=== PATIENT | male | born 1950 | race Caucasian/White ===

== ENCOUNTER 2018-05-14 22:53 | Emergency (ER) | payer MEDICARE, MEDICAID ==
[~2018-05-14] VITALS: Ht 172.7 cm; Wt 70.5 kg
[2018-05-14 22:54] VITALS: TEMP 97.2
[2018-05-14 23:30] LABS: COLLECTION METHOD CLEAN CATCH
[2018-05-14 23:32] LABS: BASO % 0.6 % (0.0-2.0); EOS % 0.4 % (0-4.0); GRAN % 72.6 % (42.2-75.2); HEMATOCRIT 42.4 % (42.0-52.0); HEMOGLOBIN 14.8 g/dl (13.5-18.0); LYMPH # 1.3 (1.2-3.4); LYMPH % 18.2 % (20.0-51.0); MEAN CELL VOLUME 91 fl (80.0-100.0); MEAN CORPUSCULAR HEMOGLOBIN 32 pg (27.0-31.0); MEAN CORPUSCULAR HGB CONC 35 g/dl (33.0-37.0); MEAN PLATELET VOLUME 8.1 fl (7.4-10.4); MONO # 0.6 (0.1-0.6); MONO % 8.1 % (1.7-9.3); PLATELET COUNT 188 K/mm3 (130-400); RED BLOOD COUNT 4.67 M/mm3 (4.20-5.60); REDCELL DISTRIBUTION WIDTH-CV 12.7 % (11.5-14.5)
[2018-05-14 23:39] LABS: PH 7 (5-8); SQUAMOUS EPITHELIAL None Seen /hpf; URINE APPEARANCE Clear; URINE BACTERIA None Seen /hpf; URINE BILIRUBIN Negative (NEGATIVE); URINE BLOOD Negative (NEGATIVE); URINE COLOR Straw; URINE GLUCOSE Negative (NEGATIVE); URINE KETONE Negative (NEGATIVE); URINE LEUKOCYTE ESTERASE Negative (NEGATIVE); URINE NITRATE Negative (NEGATIVE); URINE PROTEIN(semi-quant) Negative (NEGATIVE); URINE RBC None Seen /hpf; URINE UROBILINOGEN Negative (NEGATIVE)
[2018-05-14 23:41] LABS: ALBUMIN 4.4 gm/dL (3.5-5.0); BILIRUBIN,TOTAL 0.6 mg/dL (0.0-1.0); CALCIUM 9.6 mg/dL (8.4-10.2); CREATININE, serum 0.65 mg/dL (0.66-1.25); TOTAL PROTEIN 7.4 gm/dL (6.4-8.2)
[2018-05-15 01:55] VITALS: BP 155/88; PULSE 76
== END 2018-05-15 01:57 | disposition home or self-care (01) ==
LOC: COL.ER 22:53
PROVIDERS: Emergency Medicine
DX: R10.31 Right lower quadrant pain (principal); G43.909 Migraine, unspecified, not intractable, without status migrainosus
CPT/HCPCS: Q9967

== ENCOUNTER 2020-05-18 07:49 | Day surgery (SDC) | payer MEDICARE, MEDICAID ==
[~2020-05-18] VITALS: Ht 172.7 cm; Wt 68.9 kg
[2020-05-18 08:19] VITALS: BP 154/76; PULSE 89; TEMP 97.8
[2020-05-18] MEDS ORDERED: LOTRISONE CREAM15 GM TP (08:47)
[2020-05-18] MEDS ORDERED: TYLENOL 500MG500 MG PO (08:49)
--- NOTE | 2020-05-18 09:55 | NUR ---
Initial visit; Patient anxious and fears surgical procedure as his mom passed at the same age while undergoing surgery. Outsole Scheduler listened and offered encouragement, comfort and prayer. Patient appeared to be comforted and strengthened by prayer and assurance from Outsole Scheduler.
[2020-05-18] MEDS ORDERED: NORCO 325 MG-51 TAB PO (11:21)
[2020-05-18 11:51] VITALS: TEMP 97.2
[2020-05-18 12:25] VITALS: BP 136/62; PULSE 77
--- NOTE | 2020-05-18 12:25 | NUR ---
Patient returns to room 8 per cart from PACU accompanied by Priscila RN and is awake and alert. Room air sats 100% and temp 97.3. Bandaids x3 across the mid abdomen dry and bandaid to right lower groin area dry. Scrotal support in place. IV fluids infusing and site is free of redness. Siderails up x2 and call light in reach. Allowed to rest.
--- NOTE | 2020-05-18 12:35 | NUR ---
Patient assisted up to the bathroom and gait steady.
--- NOTE | 2020-05-18 12:45 | NUR ---
Patient returns to room after voiding and tolerates activity well. Drinking water and denies nausea.
[2020-05-18 13:00] VITALS: BP 143/76; PULSE 76
--- NOTE | 2020-05-18 13:00 | NUR ---
Room air sats 93%. Sipping on orange juice and eating muffin.
[2020-05-18 13:15] VITALS: BP 153/77; PULSE 80
--- NOTE | 2020-05-18 13:15 | NUR ---
Tolerated muffin and juice. Denies pain or nausea.
[2020-05-18 13:30] VITALS: BP 140/75; PULSE 81
--- NOTE | 2020-05-18 13:30 | NUR ---
Continues to rest without complaints.
--- NOTE | 2020-05-18 13:35 | NUR ---
Up to the bathroom and gait steady. Voids and returns to room. Denies need for pain medications.
--- NOTE | 2020-05-18 13:45 | NUR ---
INT needle discontinued and site is free of redness. Patient dresses self.
--- NOTE | 2020-05-18 14:05 | NUR ---
Dismissal instructions given and voices understanding of these. Provided script for [facility] and instructed on taking Motrin 600mg every 6 hours as needed and to take with food or milk. May start at 1700 today.
--- NOTE | 2020-05-18 14:23 | NUR ---
Patient dismissed to home driven by friends and taken to the front door per wheelchair and assisted into vehicle by this RN with dismissal instructions in hand.
== END 2020-05-18 14:23 | disposition home or self-care (01) ==
LOC: SDCO 07:49
DX: K40.90 Unilateral inguinal hernia, without obstruction or gangrene, not specified as recurrent (principal); K58.9 Irritable bowel syndrome, unspecified; M06.9 Rheumatoid arthritis, unspecified; E78.5 Hyperlipidemia, unspecified; M81.0 Age-related osteoporosis without current pathological fracture; N40.0 Benign prostatic hyperplasia without lower urinary tract symptoms; I10 Essential (primary) hypertension; G43.909 Migraine, unspecified, not intractable, without status migrainosus; Z80.6 Family history of leukemia; Z88.8 Allergy status to other drugs, medicaments and biological substances; Z20.828 Contact with and (suspected) exposure to other viral communicable diseases
CPT/HCPCS: C1781; J0330; J1100; J2405; J2704; J3010; J7120

== ENCOUNTER 2022-01-31 08:20 | Day surgery (SDC) | payer MEDICARE, MEDICAID ==
[2022-01-31] VITALS (7 sets, daily range): BP systolic 150–167; BP diastolic 67–85; PULSE 55–83; TEMP 98.4
[~2022-01-31 08:20] MED LIST: LOTRISONE CREAM15 GM TP; NORCO 325 MG-51 TAB PO; TYLENOL 500MG500 MG PO
--- NOTE | 2022-01-31 09:49 | NUR ---
Patient is complaining of feeling nervous. Order received for Versed 1mg IV. Will place on oxygen 2L per nasal cannula and place pulse oximetry on.
--- NOTE | 2022-01-31 09:55 | NUR ---
Initial visit; Patient thanked Information Management Officer for offering prayer and encouragement prior to his surgical procedure.
[2022-01-31] MEDS ORDERED: NORCO 325 MG-51 TAB PO (11:44)
--- NOTE | 2022-01-31 12:30 | NUR ---
Patient returns to room 2 per cart from PACU accompanied by Sheryl RN and is awake and alert. IV fluids infusing and site is free of redness or swelling. Bandaids x3 on abdomen clean and dry. Scrotal support in place. Denies pain or nausea. Siderails up x2 and call light in reach. Given muffin, juice, and water to drink and eat.
--- NOTE | 2022-01-31 12:45 | NUR ---
Continues to sip on juice and water. Denies pain or nausea.
--- NOTE | 2022-01-31 13:00 | NUR ---
Continues to rest and denies pain or nausea. IV continues to infuse.
--- NOTE | 2022-01-31 13:15 | NUR ---
Resting with eyes closed. Bandaids remain dry on the abdomen x3 covering incisions.
--- NOTE | 2022-01-31 13:30 | NUR ---
Continues to rest. Offers no complaints.
--- NOTE | 2022-01-31 13:33 | NUR ---
IV converted to INT. Assisted up to the bathroom and gait steady.
--- NOTE | 2022-01-31 13:45 | NUR ---
Patient able to void and returns to room. Tolerates activity well.
--- NOTE | 2022-01-31 14:05 | NUR ---
INT needle discontinued and site is free of redness. Dressing self. Ride notified.
--- NOTE | 2022-01-31 14:17 | NUR ---
Dismissal instructions given and voices understanding of these. Provided office number for questions and concerns.
--- NOTE | 2022-01-31 14:21 | NUR ---
Patient dismissed to home driven by volunter from Home care. Taken to the front door per wheelchair and assisted into vehicle with dimissal instructions in hand.
== END 2022-01-31 14:21 | disposition home or self-care (01) ==
LOC: SDCO 08:20
DX: K40.90 Unilateral inguinal hernia, without obstruction or gangrene, not specified as recurrent (principal)
CPT/HCPCS: C1781; J0690; J1100; J1170; J1885; J2250; J2405; J2704; J3010; J7120